=== PATIENT | male | born 1965 | race Caucasian/White ===

== ENCOUNTER 2016-06-28 11:33 | Emergency (ER) | payer BC ==
[2016-06-28] MEDS ORDERED: Amoxicillin/Clavulanate K 875-125 MG Tab ONE (12:50)
[2016-06-28] MEDS ORDERED: Acetaminophen/HYDROcodone 325-5 MG Tab ONE (12:50)
--- NOTE | 2016-06-28 13:15 | EDM.PDOC ---
ED HPI GENERAL MEDICAL PROBLEM - General Chief Complaint: General Stated Complaint: Toothache Time Seen by Provider: 06/28/16 12:45 Source of Information: Reports: Patient History Limitations: Reports: No Limitations - History of Present Illness INITIAL COMMENTS - FREE TEXT/NARRATIVE: According to patient he has been having dull pain in his left lower jaw for the past 2 days now. Pain has gradually got worse. Rate his pain around 5-6/10. he has tried tylenol and motrin for pain and has not helped much. Today he has noticed some swelling of the left lower jaw and hence here to be seen. No fever or chills. No difficulty with swallowing. Hurts to chew on the left side. Pt is concerned as he has crown on the teeth and needed to have it replaced in the past. No nausea, vomiting or weakness. Onset Date: 06/26/16 Duration: Getting Worse Location: Reports: Other (tooth ache) Quality: Reports: Ache Severity: Moderate Improves with: Reports: None Worsens with: Reports: Eating Associated Symptoms: Denies: Confusion, Cough, Fever/Chills, Headaches, Nausea/ Vomiting, Rash, Seizure, Shortness of Breath, Weakness - Related Data Allergies Allergy/AdvReac Type Severity Reaction Status Date / Time No Known Allergies Allergy Verified 06/28/16 12:49 Social & Family History - Tobacco Use Smoking Status *Q: Current Some Day Smoker Years of Tobacco use: 3 Packs/Tins Daily: 0 Used Tobacco, but Quit: No Tobacco Use Comment: just using cigars occasionally Second Hand Smoke Exposure: No - Caffeine Use Caffeine Use: Reports: Coffee, Soda - Alcohol Use Days Per Week of Alcohol Use: 2 Number of Drinks Per Day: 1 Total Drinks Per Week: 2 - Recreational Drug Use Recreational Drug Use: No ED ROS GENERAL - Review of Systems Review Of Systems: See Below Constitutional: Denies: Fever, Chills, Malaise, Night Sweats HEENT: Denies: Rhinitis, Throat Pain, Throat Swelling Respiratory: Denies: Cough, Sputum Cardiovascular: Denies: Chest Pain, Lightheadedness GI/Abdominal: Denies: Abdominal Pain, Nausea, Vomiting Musculoskeletal: Denies: Neck Pain, Joint Pain, Joint Swelling Skin: Denies: Pruritis, Rash ED EXAM, GENERAL - Physical Exam Exam: See Below Exam Limited By: No Limitations General Appearance: Alert, WD/WN, No Apparent Distress Eye Exam: Bilateral Eye: EOMI, PERRL Ears: Normal External Exam, Normal Canal, Hearing Grossly Normal, Normal TMs Ear Exam: Bilateral Ear: Auricle Normal, Canal Normal, TM normal Nose: Normal Inspection, Normal Mucosa, No Blood Throat/Mouth: Normal Inspection, Normal Lips, Normal Gums, Normal Oropharynx, Other (Oral cavity: there are several teeth with on them. On tapping the teeth, he does have tenderness with the right lower quadrant molars. mild ginival swelling in the same region. Tender over the boy of the madible just around the teeth. ) Head: Atraumatic, Normocephalic Neck: Normal Inspection, Supple, Non-Tender, Full Range of Motion. No: Lymphadenopathy (R), Lymphadenopathy (L) Respiratory/Chest: No Respiratory Distress, Lungs Clear, Normal Breath Sounds, No Accessory Muscle Use, Chest Non-Tender Cardiovascular: Normal Peripheral Pulses, Regular Rate, Rhythm, No Edema, No Gallop, No JVD, No Murmur, No Rub Course - Vital Signs Text/Narrative:: Pt reassured that he has tooth infection. He is tender over the left lower molar teeth to percussion. I have started him on augmentin 875mg twice daily and also vicodin 5/325 1 every 8 hrs as needed. Also to take motrin 800mg 3 times daily with food to help with inflammation. Advised to call his dentist office on Thursday for followup. Departure - Departure Time of Disposition: 13:30 Disposition: Home, Self-Care 01 Condition: good Clinical Impression: Infection of tooth socket - Discharge Information Referrals: PCP,None [Primary Care Provider] - Forms: ED Department Discharge Additional Instructions: Pt reassured that he has tooth infection. He is tender over the left lower molar teeth to percussion. I have started him on augmentin 875mg twice daily and also vicodin 5/325 1 every 8 hrs as needed. Also to take motrin 800mg 3 times daily with food to help with inflammation. Advised to call his dentist office on Thursday for followup. - Problem List & Annotations (1) Infection of tooth socket SNOMED Code(s): 053088925 Code(s): M27.3 - ALVEOLITIS OF JAWS Status: Acute Current Visit: Yes - Problem List Review Problem List Initiated/Reviewed/Updated: Yes - Assessment/Plan Assessment:: Tooth infection Plan: Pt reassured that he has tooth infection. He is tender over the left lower molar teeth to percussion. I have started him on augmentin 875mg twice daily and also vicodin 5/325 1 every 8 hrs as needed. Also to take motrin 800mg 3 times daily with food to help with inflammation. Advised to call his dentist office on Thursday for followup.
[2016-06-28 20:24] VITALS: BP 145/80
== END 2016-06-28 13:30 | disposition home or self-care (01) ==
LOC: LB.ED 11:33
DX: M27.3 Alveolitis of jaws (principal); F17.290 Nicotine dependence, other tobacco product, uncomplicated
CPT/HCPCS: 99283; A9270